=== PATIENT | female | born 1950 | race Caucasian/White ===

== ENCOUNTER → 2017-01-02 | Outpatient (CLI) | payer MEDICARE, OTHER | END | disposition home or self-care (01) | LOC: PCVCCLINIC 11:20 | PROVIDERS: ATTEND Internal Medicine | DX: I11.0 Hypertensive heart disease with heart failure (principal); I50.32 Chronic diastolic (congestive) heart failure; I25.10 Atherosclerotic heart disease of native coronary artery without angina pectoris; E78.5 Hyperlipidemia, unspecified; Z95.1 Presence of aortocoronary bypass graft; Z95.4 Presence of other heart-valve replacement; Z79.82 Long term (current) use of aspirin; Z79.899 Other long term (current) drug therapy | CPT/HCPCS: 93005; G0463 ==

== ENCOUNTER → 2017-01-09 | Outpatient (CLI) | payer MEDICARE ==
[~2017-01-09] MED LIST: REGADENOSON 0.4 MG/5 ML DISP.SYRIN. IV ONE
--- NOTE | 2017-01-09 09:30 | PCVCIMAG ---
APPROVED REPORT Study performed: 01/09/2017 07:52:01 EXAM: Comprehensive 2D, Doppler, and color-flow Echocardiogram Status: routine Other Information Study Quality: Good Indications Dyspnea CAD #19 Rubens AVR, Tricuspid Valve Repair 2D Dimensions IVSd: 12.43 (7-11mm)LVOT Diam: 19.14 (18-24mm) LVDd: 40.22 mm PWd: 12.43 (7-11mm) LVDs: 32.27 (25-40mm) Left Atrium: 49.71 (27-40mm) Aortic Root: 30.80 mm LV Single Plane 4CH: 47.28 % LV Single Plane 2CH: 60.76 %Bob's LVEF: 54.02 % Volumes Left Atrial Volume (Systole) Single Plane 4CH: 81.22 mLSingle Plane 2CH: 104.72 mL Aortic Valve AoV Peak Miki.: 4.12 m/s AO Peak Gr.: 67.89 mmHgLVOT Max P.51 mmHg AO Mean Gr.: 39.55 mmHgLVOT Mean P.28 mmHg AO V2 Mean: 2.96 m/sLVOT Max V: 1.17 m/s AO V2 VTI: 106.32 cmLVOT Mean V: 0.86 m/s CRISTINA (VTI): 0.76 [id number] V1 VTI: 28.08 cm CRISTINA Vmax: 0.82 cm2 AI Vmax: 4.53 m/sSV (LVOT): 80.78 mL AI Coke: 3.14 m/s2 AI PHT: 418.49 ms Mitral Valve MV Peak Gr.: 12.91 mmHg MV Mean Gr.: 3.64 mmHg MV Max Miki.: 1.80 m/s MV Mean Miki.: 0.81 m/s MV VTI: 426.69 mm MVA VTI: 189.33 mm2 MV PHT: 80.93 ms MVA (PHT): 2.72 cm2 IVRT: 86.51 ms Pulmonary Valve PV Peak Miki.: 0.93 m/sPV Peak Gr.: 3.45 mmHg Pulmonary Vein P Vein S: 0.34 m/s P Vein D: 0.76 m/s P Vein S/D Ratio: 0.45 Tricuspid Valve TR Peak Miki.: 3.66 m/s TR Peak Gr.: 53.73 mmHg Left Ventricle The left ventricle is normal size. There is normal LV segmental wall motion. Mild concentric left ventricular hypertrophy. Left ventricular systolic function is normal. The left ventricular ejection fraction is within the normal range. LVEF 55%. Grade II - pseudonormal filling dynamics. Right Ventricle The right ventricle is normal size. The right ventricular systolic function is normal. Atria Left atrium is severely dilated. Right atrium is severely dilated. Aortic Valve Bioprosthetic #19 Rubens bovine pericardial Aortic Valve. There is a bioprosthetic aortic valve prosthesis.The prosthetic aortic valve appears well seated. Bioprosthesis leaflets are thickened and motion is restricted. Mild regurgitation. There is no significant aortic valve stenosis. There is severe valvular aortic stenosis. Calculated aortic valve area is 0.8 cm2 with maximum pressure gradient of 68 mmHg and mean pressure gradient of 40 mmHg. Mitral Valve Heavy Posterior annular calcification. Moderate mitral regurgitation. Mild mitral valve stenosis. Maximum pressure gradient of 14 mmHg and mean pressure gradient of 4 mmHg. Tricuspid Valve Tricuspid valve annuloplasty. Moderate tricuspid regurgitation with PAP of 60 mmHg. Pulmonic Valve The pulmonary valve is normal in structure. Mild pulmonic regurgitation. Great Vessels The aortic root is normal in size. IVC is normal in size and collapses with >50% inspiration Pericardium There is no pericardial effusion. <Conclusion> Left ventricular systolic function is normal. There is normal LV segmental wall motion. LVEF 55%. Grade II - pseudonormal filling dynamics. Bioprosthetic #19 Rubens bovine pericardial Aortic Valve appears well seated. Bioprosthesis leaflets are thickened and motion is restricted. Mild regurgitation. Severe valvular aortic stenosis. Calculated aortic valve area is 0.8 cm2 with maximum pressure gradient of 78 mmHg and mean pressure gradient of 42 mmHg. Heavy Posterior annular calcification. Moderate mitral regurgitation. Mild mitral valve stenosis. Maximum pressure gradient of 14 mmHg and mean pressure gradient of 4 mmHg. Moderate tricuspid regurgitation with PAP of 60 mmHg. Tricuspid annuloplasty ring noted There is no pericardial effusion.
== END | disposition home or self-care (01) ==
LOC: PCVCIMAG 07:59
PROVIDERS: ATTEND Internal Medicine
DX: I25.10 Atherosclerotic heart disease of native coronary artery without angina pectoris (principal); I08.3 Combined rheumatic disorders of mitral, aortic and tricuspid valves; I10 Essential (primary) hypertension; I50.9 Heart failure, unspecified; I44.7 Left bundle-branch block, unspecified; E78.5 Hyperlipidemia, unspecified; Z95.1 Presence of aortocoronary bypass graft
CPT/HCPCS: 78452; 93017; 93306; A9500; J2785

== ENCOUNTER → 2017-01-24 | Outpatient (CLI) | payer MEDICARE ==
[~2017-01-24] MED LIST changes: +BENZOCAINE ONE 20% MUCOSAL SPRAY.; +IV NORMAL SALINE 1000ML BAG 1,000 ML ONE; +MIDAZOLAM HCL/PF 2 MG/2 ML VIAL. ONE; -REGADENOSON 0.4 MG/5 ML DISP.SYRIN. IV ONE; +fentaNYL PF VIAL 100 MCG/2 ML VIAL ONE
--- NOTE | 2017-01-24 15:52 | PCVCIMAG ---
APPROVED REPORT Study performed: 01/24/2017 09:33:51 EXAM: CELINA Patient Location: Echo lab Status: routine Indications Aortic Valve Disease Procedure After obtaining informed consent, patient underwent transesophageal echo in the [facility]. Type of Sedation : Conscious Sedation Sedation was administered by Shayla Kelly RN. Transesophageal probe was inserted and advanced into esophagus without difficulty by Hussein Hassan MD. The CELINA was performed without complications. Throughout the procedure, the blood pressure, pulse oximetry, cardiac rhythm, and rate were monitored. The patient tolerated the procedure without adverse effects. Recovery from conscious sedation was uneventful and vital signs were stable. Left Ventricle The left ventricle is normal size. There is normal LV segmental wall motion. Mild LVH Left ventricular systolic function is at the lower limits of normal LVEF is 50%. Right Ventricle The right ventricle is normal size. The right ventricular systolic function is normal. Atria The left atrium size is normal. No masses or clots in left atrium or appendage Injection of bubbles documented no interatrial shunt. The right atrium size is normal. Aortic Valve Bioprosthetic aortic valve is present. Abnormal leaflet thickening, possible fusion of non-coronary cusp leaflet. 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 Mild mitral annular calcification Mild to moderate mitral regurgitation. No evidence of mitral valve stenosis. Tricuspid Valve Tricuspid annuloplasty ring noted. Pulmonic Valve The pulmonary valve is normal in structure. There is no pulmonic valvular regurgitation. Great Vessels The aortic root is normal in size. Mild, scattered atherosclerosis in aorta Pericardium There is no pericardial effusion. <Conclusion> Left ventricular systolic function is at the lower limits of normal Mild LVH. Normal LV segmental wall motion. The left atrium size is normal. No masses or clots in left atrium or appendage Injection of bubbles documented no interatrial shunt. Bioprosthetic aortic valve is present. Abnormal leaflet thickening, leaflet immobility, and possible fusion of non-coronary cusp leaflet. 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 Mild mitral annular calcification Mild to moderate mitral regurgitation. There is no pericardial effusion.
== END | disposition home or self-care (01) ==
LOC: PCVCIMAG 08:48
PROVIDERS: ATTEND Internal Medicine
DX: I25.10 Atherosclerotic heart disease of native coronary artery without angina pectoris (principal); I70.0 Atherosclerosis of aorta; I05.9 Rheumatic mitral valve disease, unspecified; I11.0 Hypertensive heart disease with heart failure; I50.32 Chronic diastolic (congestive) heart failure; Z95.1 Presence of aortocoronary bypass graft; Z95.4 Presence of other heart-valve replacement; Z79.82 Long term (current) use of aspirin
CPT/HCPCS: 93312; J2250; J3010; J7030

== ENCOUNTER → 2017-03-20 | Outpatient (CLI) | payer MEDICARE ==
--- NOTE | 2017-03-20 15:31 | PCVCIMAG ---
APPROVED REPORT Study performed: 03/20/2017 13:28:42 EXAM: Comprehensive 2D, Doppler, and color-flow Echocardiogram BSA: 1.64 Indications Aortic Valve Disease Left Ventricle The left ventricle is normal size. There is normal LV segmental wall motion. There is normal left ventricular wall thickness. The left ventricular systolic function is normal. The left ventricular ejection fraction is within the normal range. LVEF is 55-60%. This study is not technically sufficient to allow evaluation of the LV diastolic function. Right Ventricle The right ventricle is normal size. The right ventricular systolic function is normal. Atria The left atrium size is normal. The right atrium size is normal. Aortic Valve Bioprosthetic aortic valve is present. Moderate insufficiency There is severe valvular aortic stenosis. Calculated aortic valve area is 0.5 cm2 with maximum pressure gradient of 82 mmHg and mean pressure gradient of 53 mmHg. Mitral Valve Moderate mitral annular calcification Mild to moderate insufficiency Calculated mitral valve area is 1.2 cm2 with maximum pressure gradient of 13 mmHg and mean pressure gradient of 4.5 mmHg, consistent with mild stenosis Tricuspid Valve Tricuspid annuloplasty ring. Moderate insufficiency Pulmonic Valve The pulmonary valve is normal in structure. Great Vessels IVC is normal in size and collapses >50% with inspiration. Pericardium There is no pericardial effusion. <Conclusion> The left ventricular systolic function is normal. There is normal LV segmental wall motion. LVEF is 55-60%. Bioprosthetic aortic valve is present, severely stenotic Calculated aortic valve area is 0.5 cm2 with maximum pressure gradient of 82 mmHg and mean pressure gradient of 53 mmHg. Moderate mitral annular calcification, moderate mitral insufficiency Calculated mitral valve area is 1.2 cm2 with maximum pressure gradient of 13 mmHg and mean pressure gradient of 4.5 mmHg, consistent with mild stenosis Pulmonary artery pressure of 50mmHg There is no pericardial effusion.
== END | disposition home or self-care (01) ==
LOC: PCVCIMAG 13:17
PROVIDERS: ATTEND Internal Medicine
DX: I08.3 Combined rheumatic disorders of mitral, aortic and tricuspid valves (principal); I25.10 Atherosclerotic heart disease of native coronary artery without angina pectoris; I48.91 Unspecified atrial fibrillation; I50.32 Chronic diastolic (congestive) heart failure; T82.09XD Other mechanical complication of heart valve prosthesis, subsequent encounter; E78.5 Hyperlipidemia, unspecified; I11.0 Hypertensive heart disease with heart failure; K21.9 Gastro-esophageal reflux disease without esophagitis; I44.7 Left bundle-branch block, unspecified; Z88.8 Allergy status to other drugs, medicaments and biological substances; Z79.82 Long term (current) use of aspirin
CPT/HCPCS: 36415; 80061; 85610; 93005; 93306; G0463

== ENCOUNTER → 2017-03-29 | Outpatient (CLI) | payer MEDICARE ==
--- NOTE | 2017-03-29 18:26 | PCVCINTER ---
APPROVED REPORT Patient Details Patient Status: Out-Patient Room #: 3 The patient is a 66 year-old Female Event Personnel Mo Choi MD, Paulo Suárez RN, Leticia Mcguire RN, Yordy Luna RT(R), Bella Carson RT(R)() Indication Heart failure, Murmur Risk Factors Arterial HypertensionDysplipidemia (Type: 1), Hypercholesterolemia, Last Creatanine 0.8Tobacco History (Never) Previous Procedures/Diagnoses Previous CABG, Previous Femoral ProcedurePrevious Valve Surgery, Previous CHFPrevious MN, CAD, Valvular heart disease, Liver disease, Previous MN, Hypertension Procedure Narrative The patient was brought electively to the Cardiac Catheterization Laboratory and was prepped and draped in a sterile manner. The right femoral was infiltrated with 1% Lidocaine subcutaneous anesthesia. A 6 fr sheath was inserted into the right femoral artery. Coronary angiography was performed using coronary diagnostic catheters. The right coronary system was accessed and visualized with a Diagnostic catheter. The left coronary system was accessed and visualized with a Diagnostic catheter. Closure device was deployed with a 6 Fr Mynx. Hemostasis was obtained with manual pressure following sheath removal without any complications. The patient tolerated the procedure well and there were no complications associated with the procedure. There was no hematoma. Both in situ grafts were imaged with a [facility] diagnostic catheter. Left heart catheterization was not performed. Diagnostic Cath Left MainNormal LADPreviously stented proximal LAD. Within a previously placed proximal to mid LAD stent is a 60-70% intrastent stenosis Diagonal 1Mild 20-30% ostial stenosis CircumflexMild proximal plaquing [id number] to moderate in size, mild ostial plaquing 20-30% [id number], angiographically normal [id number], distally arising and angiographically normal Right CoronaryDominant. Occluded at origin Left Ventriculography Left Ventriculography was not performed. Hemodynamics The aortic pressure is 129/47 mmHg with a mean of 78 mmHg. Conclusion 1. Normal left main 2. Severe two vessel coronary disease involving proximal LAD intrastent stenosis and occluded RCA 3. Widely patent JOYA to LAD 4. Widely patent in situ HUMAIRA to RCA 5. Severe bioprosthetic aortic stenosis
== END | disposition home or self-care (01) ==
LOC: PCVCINTER 11:10
PROVIDERS: ATTEND Internal Medicine
DX: I11.0 Hypertensive heart disease with heart failure (principal); I25.10 Atherosclerotic heart disease of native coronary artery without angina pectoris; I38 Endocarditis, valve unspecified; I25.2 Old myocardial infarction; E78.00 Pure hypercholesterolemia, unspecified; E78.5 Hyperlipidemia, unspecified
CPT/HCPCS: 93455; 99152; 99153; C1760; C1769; C1894; Q9967

== ENCOUNTER → 2017-11-28 | Outpatient (CLI) | payer MEDICARE | END | disposition home or self-care (01) | LOC: PCVCCLINIC 10:49 | DX: I25.10 Atherosclerotic heart disease of native coronary artery without angina pectoris (principal); I11.0 Hypertensive heart disease with heart failure; I50.32 Chronic diastolic (congestive) heart failure; E78.5 Hyperlipidemia, unspecified; Z95.1 Presence of aortocoronary bypass graft; Z95.3 Presence of xenogenic heart valve; Z79.899 Other long term (current) drug therapy; Z79.82 Long term (current) use of aspirin | CPT/HCPCS: 80061; 93005; G0463 ==

== ENCOUNTER → 2018-06-03 | Outpatient (CLI) | payer MEDICARE | END | disposition home or self-care (01) | LOC: PCVCCLINIC 14:28 | PROVIDERS: ATTEND Internal Medicine | DX: I25.10 Atherosclerotic heart disease of native coronary artery without angina pectoris (principal); I11.0 Hypertensive heart disease with heart failure; I50.32 Chronic diastolic (congestive) heart failure; E78.5 Hyperlipidemia, unspecified; Z95.3 Presence of xenogenic heart valve; Z95.1 Presence of aortocoronary bypass graft; Z79.82 Long term (current) use of aspirin; Z79.899 Other long term (current) drug therapy | CPT/HCPCS: 80061; 93005; G0463 ==

== ENCOUNTER → 2019-01-02 | Outpatient (CLI) | payer MEDICARE | END | disposition home or self-care (01) | LOC: PCVCCLINIC 14:00 | PROVIDERS: ATTEND Internal Medicine | DX: I25.10 Atherosclerotic heart disease of native coronary artery without angina pectoris (principal); I11.0 Hypertensive heart disease with heart failure; I50.32 Chronic diastolic (congestive) heart failure; E78.5 Hyperlipidemia, unspecified; Z95.3 Presence of xenogenic heart valve; Z95.1 Presence of aortocoronary bypass graft; Z88.1 Allergy status to other antibiotic agents | CPT/HCPCS: 36415; 80061; 93005; G0463 ==

== ENCOUNTER → 2019-07-09 | Outpatient (CLI) | payer MEDICARE ==
--- NOTE | 2019-07-09 11:58 | PCVCIMAG ---
APPROVED REPORT Study performed: 07/09/2019 09:53:07 EXAM: Comprehensive 2D, Doppler, and color-flow Echocardiogram Patient Location: Echo lab Status: routine BSA: 1.66 HR: 55 bpmBP: 124/62 mmHg Rhythm: Bradycardia Other Information Study Quality: Adequate Technically limited study due to poor acoustic windows. Indications CAD #19 Rubens bovine pericardial bioprosthesis, diastolic CHF 2D Dimensions IVSd: 11.85 (7-11mm)LVOT Diam: 18.76 (18-24mm) LVDd: 40.54 mm PWd: 11.93 (7-11mm)Ascending Ao: 31.92 (22-36mm) LVDs: 25.59 (25-40mm) Left Atrium: 47.42 (27-40mm) Aortic Root: 29.53 mm LV Single Plane 4CH: 53.84 % LV Single Plane 2CH: 61.11 % Biplane EF: 58.0 % Volumes Left Atrial Volume (Systole) Single Plane 4CH: 60.00 mLSingle Plane 2CH: 65.73 mL LA ESV Index: 39.00 mL/m2 Aortic Valve AoV Peak Miki.: 2.67 m/s AO Peak Gr.: 28.43 mmHgLVOT Max P.59 mmHg AO Mean Gr.: 13.82 mmHgLVOT Mean P.71 mmHg AO V2 Mean: 1.71 m/sLVOT Max V: 1.07 m/s AO V2 VTI: 62.09 cmLVOT Mean V: 0.80 m/s CRISTINA (VTI): 1.11 [id number] VTI: 25.05 cm CRISTINA Vmax: 1.11 cm2 SV (LVOT): 69.20 mL Mitral Valve MV Peak Gr.: 6.49 mmHg MV Mean Gr.: 2.12 mmHgE/A Ratio: 1.2 MV Decel. Time: 332.97 ms MV E Max Miki.: 1.22 m/s MV A Miki.: 1.06 m/s MV Max Miki.: 1.27 m/s MV Mean Miki.: 0.66 m/s MV VTI: 421.93 mm MVA VTI: 164.00 mm2 MV PHT: 92.32 ms MVA (PHT): 2.38 cm2 IVRT: 100.35 ms Pulmonary Valve PV Peak Miki.: 1.17 m/sPV Peak Gr.: 5.52 mmHg Pulmonary Vein P Vein S: 0.35 m/s P Vein D: 0.51 m/s P Vein S/D Ratio: 0.69 Tricuspid Valve TR Peak Miki.: 2.54 m/s TR Peak Gr.: 25.73 mmHg Left Ventricle The left ventricle is normal size. There is normal LV segmental wall motion. Mild concentric left ventricular hypertrophy. Left ventricular systolic function is normal. The left ventricular ejection fraction is within the normal range. LVEF is 55-60%. This study is not technically sufficient to allow evaluation of the LV diastolic function. Right Ventricle The right ventricle is normal size. The right ventricular systolic function is normal. Atria Left atrium is mildly dilated. Right atrium is mildly dilated. Aortic Valve Normally functioning #19 Rubens bovine pericardial bioprosthesis No aortic regurgitation is present. Calculated aortic valve area is 1.1 cm2 with maximum pressure gradient of 28 mmHg and mean pressure gradient of 14 mmHg. Mitral Valve Moderate-severely calcified leaflets without stenosis. Mild mitral regurgitation. No evidence of mitral valve stenosis. Tricuspid Valve The tricuspid valve is normal in structure. Mild tricuspid regurgitation with PAP of 33 mmHg. Pulmonic Valve The pulmonary valve is normal in structure. There is no pulmonic valvular regurgitation. Great Vessels The aortic root is normal in size. IVC is normal in size and collapses >50% with inspiration. Pericardium There is no pericardial effusion. There is no pleural effusion. <Conclusion> Left ventricular systolic function is normal. There is normal LV segmental wall motion. LVEF is 55-60%. Left atrium is mildly dilated. Normally functioning #19 Rubens bovine pericardial bioprosthesis. No aortic insufficiency Calculated aortic valve area is 1.1 cm2 with maximum pressure gradient of 28 mmHg and mean pressure gradient of 14 mmHg. Moderate-severely calcified leaflets without stenosis. Mild mitral regurgitation. Mild tricuspid regurgitation with pulmonary artery pressure of 33 mmHg. There is no pericardial effusion.
== END | disposition home or self-care (01) ==
LOC: PCVCIMAG 09:46
PROVIDERS: ATTEND Internal Medicine
DX: I08.1 Rheumatic disorders of both mitral and tricuspid valves (principal); I25.10 Atherosclerotic heart disease of native coronary artery without angina pectoris; I11.0 Hypertensive heart disease with heart failure; I50.32 Chronic diastolic (congestive) heart failure; E78.5 Hyperlipidemia, unspecified; K21.9 Gastro-esophageal reflux disease without esophagitis; I25.2 Old myocardial infarction; I44.1 Atrioventricular block, second degree; I44.7 Left bundle-branch block, unspecified; R00.1 Bradycardia, unspecified; Z90.49 Acquired absence of other specified parts of digestive tract; Z79.82 Long term (current) use of aspirin; Z79.899 Other long term (current) drug therapy; Z95.3 Presence of xenogenic heart valve; Z95.1 Presence of aortocoronary bypass graft; Z88.8 Allergy status to other drugs, medicaments and biological substances; Z72.89 Other problems related to lifestyle
CPT/HCPCS: 36415; 80061; 93005; 93306; G0463